=== PATIENT | female | born 1950 | race Caucasian/White ===

== ENCOUNTER → 2016-11-25 | Outpatient (REF) | payer MEDICARE, OTHER ==
[2016-11-25 11:47] LABS: BASOPHILS % (AUTO) 1 % (0-2); EOSINOPHILS # (AUTO) 0.2 10^3uL; EOSINOPHILS % (AUTO) 3 % (0-4); LYMPHOCYTES # (AUTO) 1.6 X10^3; MEAN CORPUSCULAR HEMOGLOBIN 28.8 PG (26.0-34.0); MEAN CORPUSCULAR HGB CONC 32.7 g/dL (31.0-37.0); MEAN CORPUSCULAR VOLUME 88 FL (80-100); MEAN PLATELET VOLUME 11.3 FL (6.0-9.5); MONOCYTES # (AUTO) 0.5 X10^3; MONOCYTES % (AUTO) 8 % (3-11); NEUTROPHILS # (AUTO) 3.8 X10^3; NEUTROPHILS % (AUTO) 63 % (51-67); PLATELET COUNT 209 10^3uL (150-450); WHITE BLOOD COUNT 5.98 10^3uL (4.0-11.0)
[2016-11-25 12:12] LABS: ALBUMIN 4.4 g/dL (3.4-5.0); ANION GAP 13.8 MEQ/L (3-15); CALCULATED IONIZED CALCIUM 4.3 mg/dL (3.8-4.6); TOTAL PROTEIN 7.3 g/dL (6.4-8.5)
== END ==
LOC: LAB 11:30
PROVIDERS: ATTEND Nurse Practitioner Family
DX: Z13.6 Encounter for screening for cardiovascular disorders (principal); Z11.59 Encounter for screening for other viral diseases; R51 Headache
CPT/HCPCS: 80053; 80061; 85025; 86803

== ENCOUNTER → 2016-12-07 | Outpatient (CLI) | payer MEDICARE, OTHER | LOC: RAD 12:55 | PROVIDERS: ATTEND Nurse Practitioner Family | DX: Z12.31 Encounter for screening mammogram for malignant neoplasm of breast (principal) ==